=== PATIENT | female | born 1990 | race Two or more races ===

== ENCOUNTER 2024-03-26 05:53 | Emergency (ER) | payer OTHER ==
[~2024-03-26] VITALS: Ht 160 cm; Wt 56.7 kg
[~2024-03-26 05:53] MED LIST: Colace 100MG PO; KETO10TA2 PO; Mylicon 125MG PO; OXYC1TAB9 PO; PRENATE ADVANCE PO
[2024-03-26] MEDS ORDERED: CEFTRIAXONE SODIUM 1,000 MG VIAL IM STA (08:44)
[2024-03-26] MEDS ORDERED: GUAIFENESIN 200 MG/10 ML BLIST.PACK PO STA (08:44)
[2024-03-26 09:11] LABS: HEMOGLOBIN 12.8 g/dL (12.0-15.00); MEAN CELL VOLUME 89.3 fL (80.00-100.00); MEAN CORPUSCULAR HEMOGLOBIN 29.9 pg (27.00-32.0); MEAN CORPUSCULAR HGB CONC 33.6 g/dl (32.0-36.0); PLATELET COUNT 299 K/uL (150-450); RED BLOOD COUNT 4.26 M/uL (4.00-6.00); RED CELL DISTRIBUTION WIDTH 13.4 % (11.5-14.5)
== END 2024-03-26 11:33 | disposition home or self-care (01) ==
LOC: ER 05:55
PROVIDERS: General Practice
DX: R05.9 Cough, unspecified (principal); Z20.822 Contact with and (suspected) exposure to COVID-19

== ENCOUNTER 2024-03-30 19:30 | Emergency (ER) | payer OTHER ==
[~2024-03-30] VITALS: Ht 160 cm; Wt 56.7 kg
[2024-03-30] MEDS ORDERED: CEFDINIR300 MG PO (20:14)
[2024-03-30] MEDS ORDERED: CETIRIZINE HCL 5 MG/5 ML ML PO ONE (23:15)
[2024-03-30] MEDS ORDERED: IPRATROPIUM BROMIDE 0.5 MG/2.5 ML AMPUL.NEB IH SCH (23:15)
[2024-03-30] MEDS ORDERED: MONTELUKAST SODIUM 10 MG TABLET PO ONE (23:15)
== END 2024-03-30 23:43 | disposition left against medical advice (07) ==
LOC: ER 19:33
DX: J32.8 Other chronic sinusitis (principal)